=== PATIENT | male | born 2000 | race Caucasian/White ===

== ENCOUNTER 2020-11-10 11:29 | Emergency (ER) | payer MEDICAID ==
[2020-11-10] MEDS ORDERED: ZOFRAN ODT 4 MG PO ONE (11:58)
[2020-11-10] MEDS ORDERED: ZOFRAN ODT 4 MG ONE (11:59)
--- NOTE | 2020-11-10 12:03 | ERPHSYRPT ---
- History of Present Illness Time Seen by Provider: 11/10/20 11:30 Source: patient Exam Limitations: no limitations Patient Subjective Stated Complaint: Patient has compaints of back pain 02/22, midline lower back and into bilateral flanks. Patient states he had back surgery in May. Triage Nursing Assessment: Patient presents to ED with c/o back pain 02/22. Reports back surgery for buldging disc to cut down that was on sciatic nerve which resulted in scar tissue and back will "lock up" in pain starting yesterday. Physician History: This is a 20-year-old white male who has a history of a back surgery to correct herniated disks in May 2020. 2 days ago, the patient states he was lifting up his child when he felt a pop in his back. He stated he did not have any pain until 24 hours later which was yesterday. He comes in today stating that he is in excruciating pain in this area where he had the surgery. He has no loss of bowel or bladder control. He states he has no numbness in his lower extremitie s. He states he has full sensation in his bilateral lower extremities down to his toes Timing/Duration: yesterday, sudden Method of Injury: bending, lifting Quality: sharp, stabbing Back Pain Location: lumbar spine Severity of Pain-Max: moderate Severity of Pain-Current: moderate Modifying Factors: Improves With: movement Associated Symptoms: lower back pain, No loss of bowel control, No problems urinating, No light-headedness, No dizziness, No numbness in legs/feet, No sensory/motor loss, No tingling in legs/feet Previous symptoms: no prior history Allergies/Adverse Reactions: No Known Drug Allergies Allergy (Unverified 11/10/20 11:41) Home Medications: Diazepam [Valium] 10 mg PO PRN 11/10/20 [History] Hx Tetanus, Diphtheria Vaccination/Date Given: Yes Hx Influenza Vaccination/Date Given: No Hx Pneumococcal Vaccination/Date Given: No Immunizations Up to Date: Yes Travel Risk - International Travel Have you traveled outside of the country in past 3 weeks: No - Coronavirus Screening Are you exhibiting any of the following symptoms?: No Close contact with a COVID-19 positive Pt in past 14-21 Days: No - Vaccine Status Have you recieved a Covid-19 vaccination: No - Review of Systems Constitutional: No Symptoms Eyes: No Symptoms Ears, Nose, & Throat: No Symptoms Respiratory: No Symptoms Cardiac: No Symptoms Abdominal/Gastrointestinal: No Symptoms Genitourinary Symptoms: No Symptoms Musculoskeletal: Back Pain Skin: No Symptoms Neurological: No Symptoms Psychological: No Symptoms Endocrine: No Symptoms Hematologic/Lymphatic: No Symptoms Immunological/Allergic: No Symptoms All Other Systems: Reviewed and Negative - Past Medical History Pertinent Past Medical History: No Musculoskeletal History: Other Other Medical History: buldging disc - Past Surgical History Past Surgical History: Yes Other Surgical History: back surgery may 2020 - Social History Smoking Status: Former smoker Exposure to second hand smoke: Yes Drug Use: marijuana Patient Lives Alone: No - Nursing Vital Signs Nursing Vital Signs: Initial Vital Signs Temperature 97.9 F 11/10/20 11:30 Pulse Rate 71 11/10/20 11:30 Respiratory Rate 20 11/10/20 11:30 Blood Pressure 157/88 11/10/20 11:30 O2 Sat by Pulse Oximetry 99 11/10/20 11:30 Pain Scale Pain Intensity 8 - Physical Exam General Appearance: no apparent distress, alert, anxiety Eye Exam: PERRL/EOMI, eyes nml inspection Ears, Nose, Throat Exam: normal ENT inspection, moist mucous membranes Neck Exam: normal inspection, non-tender, supple, full range of motion Respiratory Exam: airway intact, No chest tenderness, No respiratory distress Gastrointestinal Exam: No tenderness Rectal Exam: not done Back Exam: normal inspection, normal range of motion, vertebral tenderness, decreased range of motion, muscle spasm, No CVA tenderness Extremity Exam: normal inspection, normal range of motion, pelvis stable Neurologic Exam: alert, oriented x 3, cooperative, weaver tire cord II-XII nml as tested, normal mood/affect, nml cerebellar function, nml station & gait, sensation nml Skin Exam: normal color, warm, dry Lymphatic Exam: No adenopathy SpO2 Interpretation: normal SpO2: 99 O2 Delivery: Room Air - Course Nursing assessment & vital signs reviewed: Yes Ordered Tests: Active Orders 24 hr Category Date Time Status LUMBAR LIMITED (2 OR 3 VIEWS) Stat Exams 11/10/20 12:06 Completed Medication Summary Discontinued Medications Generic Name Dose Route Start Last Admin Trade Name Freq PRN Reason Stop Dose Admin Hydromorphone HCl 1 mg 11/10/20 12:36 Hydromorphone 1 Mg/Ml Injection IM 11/10/20 12:37 STAT ONE Ondansetron HCl 4 mg 11/10/20 11:58 11/10/20 12:01 Zofran Odt 4 Mg PO 11/10/20 11:59 4 mg STAT ONE Administration Ondansetron HCl Confirm 11/10/20 11:59 Zofran Odt 4 Mg Administered 11/10/20 12:00 Dose 4 mg .ROUTE .STK-MED ONE - Progress Progress: improved, pain not gone completely Progress Note: 11/10/20 12:46 X-ray of the lumbar spine demonstrates 4 lumbar segments with sacralized L5 and normal alignment with minimal L4-L5 disc space narrowing and minimal T12-L1 anterior wedge favoring transitional segments. No acute fractures are demonstrated. Counseled pt/family regarding: diagnosis, need for follow-up, rad results - Departure Departure Disposition: Home Clinical Impression: Back pain Condition: Stable Critical Care Time: No Additional Instructions: Call your back surgeon and your primary care physician today to make arrangements for further evaluation and management. Take your medications as prescribed. Prescriptions: Cyclobenzaprine HCl 10 mg [Cyclobenzaprine 10 MG] 10 mg PO TID #10 tablet Prednisone 10 mg [Deltasone 10 mg] 10 mg PO TID #12 tablet
--- NOTE | 2020-11-10 12:20 | XRAY ---
Indication: Low back pain. Comparison: None 3 view lumbar spine demonstrates 4 lumbar segments with sacralized L5 in normal alignment with minimal L4-L5 disc space narrowing and minimal T12-L1 anterior wedging favoring transitional segments. No other bony, articular, or soft tissue abnormalities.
[2020-11-10] MEDS ORDERED: Hydromorphone 1 mg/ml Injection IM ONE (12:36)
[2020-11-10] MEDS ORDERED: solu-MEDROL 125 MG IM ONE (12:49)
[2020-11-10 13:28] VITALS: BP 102/44; PULSE 68; O2SAT 98
== END 2020-11-10 13:31 | disposition home or self-care (01) ==
LOC: ED 11:29
DX: M54.5 Low back pain (principal)
CPT/HCPCS: 72100; 99284; Q0162

== ENCOUNTER 2021-06-07 10:42 | Emergency (ER) | payer MEDICAID ==
[2021-06-07] MEDS ORDERED: Sodium Chloride 0.9% 1000 ML 1,000 ML IV STA (10:58)
[2021-06-07 11:07] VITALS: O2SAT 97
[2021-06-07] MEDS ORDERED: Sodium Chloride 0.9% 1000 ML 1,000 ML ONE (11:12)
[2021-06-07] MEDS ORDERED: NORCO 5/325 MG ONE (11:12)
--- NOTE | 2021-06-07 11:12 | ERPHSYRPT ---
- History of Present Illness Time Seen by Provider: 06/07/21 11:05 Source: patient Exam Limitations: no limitations Patient Subjective Stated Complaint: cough, fever, headache, body aches, nausea, since yesterday Triage Nursing Assessment: Pt brought self to the ER, tachycardic, hypertensive, rates pain 10/10 in the head and overall body pain, bounding pulses, skin n/h/d, no difficulty breathing, states that his temp was 104.8 at home during the night, productive thick yellow/greenish cough Physician History: Patient is a 21-year-old white male who presents with COVID symptoms x2 days. He was exposed to several people who subsequently developed COVID his symptoms started yesterday he has had a severe headache nasal congestion coughing producing some mucus fever chills sweats some nausea no vomiting or diarrhea and severe body aches and muscle aches. Timing/Duration: yesterday Cough Quality/Degree: moderate, productive cough Possible Cause: illness exposure Modifying Factors: Improves With: coughing Associated Symptoms: fever, chills, chest pain/soreness, cough, facial pain, headache, lightheadedness, muscle aches, nasal congestion, nasal drainage, shortness of breath, sinus infection, sore throat, wheezing Allergies/Adverse Reactions: No Known Drug Allergies Allergy (Verified 06/07/21 11:07) Hx Tetanus, Diphtheria Vaccination/Date Given: Yes Hx Influenza Vaccination/Date Given: No Hx Pneumococcal Vaccination/Date Given: No Travel Risk - International Travel Have you traveled outside of the country in past 3 weeks: No - Coronavirus Screening Are you exhibiting any of the following symptoms?: Yes Symptoms: Fever, Cough: New Onset, Vomiting/Diarrhea, Headaches/Body Aches/Fatigue - Vaccine Status Have you recieved a Covid-19 vaccination: No - Review of Systems Constitutional: Fever, Chills, Fatigue, Lethargy, Malaise, Night Sweats, Weakness Eyes: No Symptoms Ears, Nose, & Throat: No Symptoms, Nose Pain, Nose Congestion, Nose Discharge, Sinus Drainage, Throat Pain, Hoarse, Painful Swallowing Respiratory: Cough, Dyspnea, Dyspnea on Exertion (SANCHEZ) Cardiac: No Chest Pain, No Edema, No Syncope Abdominal/Gastrointestinal: Abdominal Pain, Nausea, No Vomiting, No Diarrhea Genitourinary Symptoms: No Dysuria Musculoskeletal: Arthralgias, Back Pain, Myalgias, No Neck Pain Skin: No Rash Neurological: Headache, Lethargy, No Dizziness, No Focal Weakness, No Sensory Changes Psychological: No Symptoms Endocrine: No Symptoms All Other Systems: Reviewed and Negative - Past Medical History Pertinent Past Medical History: No Musculoskeletal History: Other Other Medical History: buldging disc - Past Surgical History Past Surgical History: Yes Other Surgical History: back surgery may 2020 - Social History Smoking Status: Former smoker Exposure to second hand smoke: No Drug Use: marijuana Patient Lives Alone: No - Nursing Vital Signs Nursing Vital Signs: Initial Vital Signs Temperature 99.6 F 06/07/21 10:55 Pulse Rate 113 H 06/07/21 10:55 Respiratory Rate 17 06/07/21 10:55 Blood Pressure 149/92 06/07/21 10:55 O2 Sat by Pulse Oximetry 97 06/07/21 10:55 Pain Scale Pain Intensity 10 - Physical Exam General Appearance: moderate distress Eye Exam: PERRL/EOMI, eyes nml inspection Ears, Nose, Throat Exam: moist mucous membranes, pharyngeal erythema Neck Exam: normal inspection, non-tender, supple, full range of motion Respiratory Exam: normal breath sounds, lungs clear, No respiratory distress Cardiovascular Exam: regular rate/rhythm, normal heart sounds Gastrointestinal/Abdomen Exam: tenderness, No normal bowel sounds (Increased bowel sounds), No guarding, No rebound Back Exam: normal inspection, decreased range of motion, muscle spasm Extremity Exam: normal inspection, normal range of motion Neurologic Exam: oriented x 3, cooperative, family independence case manager II-XII nml as tested, normal moo d/affect Skin Exam: normal color, warm, dry SpO2 Interpretation: normal SpO2: 97 O2 Delivery: Room Air - Course Nursing assessment & vital signs reviewed: Yes EKG Interpreted by Me: RATE ([id number]), NORMAL AXIS, NORMAL INTERVALS, Non-specific ST Changes - Radiology Exams Chest X-ray Interpretation: Interpreted by me, Negative Ordered Tests: Active Orders 24 hr Category Date Time Status EKG-ER Only STAT Care 06/07/21 10:58 Active IV Insertion STAT Care 06/07/21 10:58 Active CHEST 1 VIEW (PORTABLE) Stat Exams 06/07/21 11:08 Taken BLOOD CULTURE Stat Lab 06/07/21 11:21 Received CBC W DIFF Stat Lab 06/07/21 11:15 Completed CMP Stat Lab 06/07/21 11:15 Completed COVID AG-BINAX NOW RAPID TEST Stat Lab 06/07/21 11:18 Completed D-DIMER QUANTITATIVE Stat Lab 06/07/21 11:15 Completed INFLUENZA A+B LEONEL Stat Lab 06/07/21 11:18 Completed Lactic Acid Stat Lab 06/07/21 11:15 Completed MAGNESIUM Stat Lab 06/07/21 11:15 Completed PROTIME WITH INR Stat Lab 06/07/21 11:15 Completed TROPONIN Q3H Lab 06/07/21 11:15 Completed TROPONIN Q3H Lab 06/07/21 14:00 Ordered TROPONIN Q3H Lab 06/07/21 17:00 Ordered TROPONIN Q3H Lab 06/07/21 20:00 Ordered TROPONIN Q3H Lab 06/07/21 23:00 Ordered UA W/RFX UR CULTURE Stat Lab 06/07/21 10:58 Ordered Medication Summary Discontinued Medications Generic Name Dose Route Start Last Admin Trade Name Freq PRN Reason Stop Dose Admin Acetaminophen Confirm 06/07/21 11:17 Acetaminophen 500 Mg Tablet Administered 06/07/21 11:18 Dose 1,000 mg .ROUTE .STK-MED ONE Acetaminophen 1,000 mg 06/07/21 11:20 06/07/21 11:22 Acetaminophen 500 Mg Tablet PO 06/07/21 11:21 1,000 mg STAT ONE Administration Hydrocodone Bitart/Acetaminophen 1 tab 06/07/21 11:06 06/07/21 11:20 Hydrocodone/Apap 5/325 Mg Tablet PO 06/07/21 11:07 Not Given STAT ONE Hydrocodone Bitart/Acetaminophen Confirm 06/07/21 11:12 Hydrocodone/Apap 5/325 Mg Tablet Administered 06/07/21 11:13 Dose 1 tab .ROUTE .STK-MED ONE Sodium Chloride 1,000 mls @ 999 mls/hr 06/07/21 10:58 06/07/21 12:19 Sodium Chloride 0.9% 1000 Ml IV 06/07/21 11:58 Infused .Q1H1M STA Infusion Sodium Chloride Confirm 06/07/21 11:12 Sodium Chloride 0.9% 1000 Ml Administered 06/07/21 11:13 Dose 1,000 mls @ ud .ROUTE .STK-MED ONE Lab/Rad Data: Laboratory Result Diagrams 06/07/21 11:15 06/07/21 11:15 Laboratory Results 06/07/21 06/07/21 06/07/21 Range/Units 11:18 11:18 11:15 WBC (4.0-10.5) K/mm3 RBC (4.1-5.6) M/mm3 Hgb (12.5-18.0) gm/dl Hct (42-50) % MCV (78-100) fl MCH (26-32) pg MCHC (32-36) g/dl RDW (11.5-14.0) % Plt Count (150-450) K/mm3 MPV (7.5-11.0) fl Gran % (36.0-66.0) % Eos # (Auto) (0-0.5) Absolute Lymphs (auto) (1.0-4.6) Absolute Monos (auto) (0.0-1.3) Lymphocytes % (24.0-44.0) % Monocytes % (0.0-12.0) % Eosinophils % (0.00-5.0) % Basophils % (0.0-0.4) % Absolute Granulocytes (1.4-6.9) Basophils # (0-0.4) PT (9.4-12.5) SECONDS INR (0.8-3.0) D-Dimer (215-500) ng/mL Sodium (137-145) mmol/L Potassium (3.5-5.1) mmol/L Chloride (98-107) mmol/L Carbon Dioxide (22-30) mmol/L Anion Gap (5-15) MEQ/L BUN (9-20) mg/dL Creatinine (0.66-1.25) mg/dL Estimated GFR ML/MIN Glucose (74-106) mg/dL Lactic Acid (0.4-2.0) Calcium (8.4-10.2) mg/dL Magnesium (1.6-2.3) mg/dL Total Bilirubin (0.2-1.3) mg/dL AST (17-59) U/L ALT (0-50) U/L Alkaline Phosphatase (38-126) U/L Troponin I < 0.012 (0.000-0.034) ng/mL Serum Total Protein (6.3-8.2) g/dL Albumin (3.5-5.0) g/dL Influenza Type A Ag POSITIVE (NEGATIVE) Influenza Type B Ag NEGATIVE (NEGATIVE) SARS-CoV-2 Ag (Rapid) NEGATIVE (NEGATIVE) 06/07/21 06/07/21 06/07/21 Range/Units 11:15 11:15 11:15 WBC (4.0-10.5) K/mm3 RBC (4.1-5.6) M/mm3 Hgb (12.5-18.0) gm/dl Hct (42-50) % MCV (78-100) fl MCH (26-32) pg MCHC (32-36) g/dl RDW (11.5-14.0) % Plt Count (150-450) K/mm3 MPV (7.5-11.0) fl Gran % (36.0-66.0) % Eos # (Auto) (0-0.5) Absolute Lymphs (auto) (1.0-4.6) Absolute Monos (auto) (0.0-1.3) Lymphocytes % (24.0-44.0) % Monocytes % (0.0-12.0) % Eosinophils % (0.00-5.0) % Basophils % (0.0-0.4) % Absolute Granulocytes (1.4-6.9) Basophils # (0-0.4) PT 14.5 H (9.4-12.5) SECONDS INR 1.23 (0.8-3.0) D-Dimer 302 (215-500) ng/mL Sodium 139 (137-145) mmol/L Potassium 3.6 (3.5-5.1) mmol/L Chloride 103 (98-107) mmol/L Carbon Dioxide 21 L (22-30) mmol/L Anion Gap 18.1 H (5-15) MEQ/L BUN 9 (9-20) mg/dL Creatinine 0.94 (0.66-1.25) mg/dL Estimated GFR > 60.0 ML/MIN Glucose 113 H (74-106) mg/dL Lactic Acid 2.1 H (0.4-2.0) Calcium 9.7 (8.4-10.2) mg/dL Magnesium 1.7 (1.6-2.3) mg/dL Total Bilirubin 1.60 H (0.2-1.3) mg/dL AST 25 (17-59) U/L ALT 29 (0-50) U/L Alkaline Phosphatase 53 (38-126) U/L Troponin I (0.000-0.034) ng/mL Serum Total Protein 7.9 (6.3-8.2) g/dL Albumin 5.0 (3.5-5.0) g/dL Influenza Type A Ag (NEGATIVE) Influenza Type B Ag (NEGATIVE) SARS-CoV-2 Ag (Rapid) (NEGATIVE) 06/07/21 Range/Units 11:15 WBC 6.5 (4.0-10.5) K/mm3 RBC 5.19 (4.1-5.6) M/mm3 Hgb 14.9 (12.5-18.0) gm/dl Hct 43.2 (42-50) % MCV 83.2 (78-100) fl MCH 28.7 (26-32) pg MCHC 34.5 (32-36) g/dl RDW 12.4 (11.5-14.0) % Plt Count 169 (150-450) K/mm3 MPV 10.7 (7.5-11.0) fl Gran % 74.1 H (36.0-66.0) % Eos # (Auto) 0.03 (0-0.5) Absolute Lymphs (auto) 0.46 L (1.0-4.6) Absolute Monos (auto) 1.17 (0.0-1.3) Lymphocytes % 7.1 L (24.0-44.0) % Monocytes % 18.1 H (0.0-12.0) % Eosinophils % 0.5 (0.00-5.0) % Basophils % 0.2 (0.0-0.4) % Absolute Granulocytes 4.80 (1.4-6.9) Basophils # 0.01 (0-0.4) PT (9.4-12.5) SECONDS INR (0.8-3.0) D-Dimer (215-500) ng/mL Sodium (137-145) mmol/L Potassium (3.5-5.1) mmol/L Chloride (98-107) mmol/L Carbon Dioxide (22-30) mmol/L Anion Gap (5-15) MEQ/L BUN (9-20) mg/dL Creatinine (0.66-1.25) mg/dL Estimated GFR ML/MIN Glucose (74-106) mg/dL Lactic Acid (0.4-2.0) Calcium (8.4-10.2) mg/dL Magnesium (1.6-2.3) mg/dL Total Bilirubin (0.2-1.3) mg/dL AST (17-59) U/L ALT (0-50) U/L Alkaline Phosphatase (38-126) U/L Troponin I (0.000-0.034) ng/mL Serum Total Protein (6.3-8.2) g/dL Albumin (3.5-5.0) g/dL Influenza Type A Ag (NEGATIVE) Influenza Type B Ag (NEGATIVE) SARS-CoV-2 Ag (Rapid) (NEGATIVE) - Progress Progress: unchanged Air Movement: good Blood Culture(s) Obtained: Yes Antibiotics given: No - Departure Departure Disposition: Home Clinical Impression: Influenza Condition: Stable Critical Care Time: No Referrals: DOCTOR,NO FAMILY [Primary Care Provider] - Follow up/PCP as directed Instructions: Flu, Adult (DC) Prescriptions: Oseltamivir 75 mg [Tamiflu 75MG Capsule] 75 mg PO BID #10 cap
[2021-06-07] MEDS: NORCO 5/325 MG PO ONE ×2 (11:15→11:20)
[2021-06-07] MEDS ORDERED: TYLENOL EXTRA STRENGTH 500 MG ONE (11:17)
[2021-06-07] MEDS ORDERED: TYLENOL EXTRA STRENGTH 500 MG PO ONE (11:20)
[2021-06-07 11:34] LABS: Basophil (Absolute #) 0.01 (0-0.4); Eosinophil % 0.5 % (0.00-5.0); Eosinophil (Absolute #) 0.03 (0-0.5); Hematocrit 43.2 % (42-50); Hemoglobin 14.9 gm/dl (12.5-18.0); Lymphocyte (Absolute #) 0.46 (1.0-4.6); Lymphocytes % 7.1 % (24.0-44.0); Mean Cell Volume 83.2 fl (78-100); Mean Corpuscular Hemoglobin 28.7 pg (26-32); Mean Corpuscular Hgb Concent. 34.5 g/dl (32-36); Mean Platelet Volume 10.7 fl (7.5-11.0); Monocyte (Absolute #) 1.17 (0.0-1.3); Monocytes % 18.1 % (0.0-12.0); Neutrophil % 74.1 % (36.0-66.0); Platelet Count 169 K/mm3 (150-450); Red Blood Count 5.19 M/mm3 (4.1-5.6); Red Cell Distribution Width 12.4 % (11.5-14.0); White Blood Count 6.5 K/mm3 (4.0-10.5)
[2021-06-07 11:44] LABS: INR 1.23 (0.8-3.0); PROTIME 14.5 SECONDS (9.4-12.5)
[2021-06-07 11:46] LABS: ALKALINE PHOSPHATASE 53 U/L (38-126); ANION GAP 18.1 MEQ/L (5-15); BLOOD UREA NITROGEN 9 mg/dL (9-20); CHLORIDE 103 mmol/L (98-107); Calcium 9.7 mg/dL (8.4-10.2); Carbon Dioxide 21 mmol/L (22-30); Creatinine 1 0.94 mg/dL (0.66-1.25); EST GLOMERULAR FILTRATION RATE > 60.0 ML/MIN; Glucose 113 mg/dL (74-106); MAGNESIUM 1.7 mg/dL (1.6-2.3); Potassium 3.6 mmol/L (3.5-5.1); SGOT/AST 25 U/L (17-59); SGPT/ALT 29 U/L (0-50); SODIUM 139 mmol/L (137-145); Total Protein 7.9 g/dL (6.3-8.2)
[2021-06-07 12:02] VITALS: BP 146/78; PULSE 104
[2021-06-07 12:18] LABS: INFLUENZA A POSITIVE (NEGATIVE); INFLUENZA B NEGATIVE (NEGATIVE)
[2021-06-07 12:19] LABS: COVID AG -BINAX NOW RAPID TEST NEGATIVE (NEGATIVE)
[2021-06-07 15:27] LABS: Slide Review 1 YES
--- NOTE | 2021-06-07 19:07 | XRAY ---
Indication: Fever, cough, and chills. Suspect Covid 19. Comparison: None Portable chest demonstrates normal heart, lungs, and bony thorax.
== END 2021-06-07 12:36 | disposition home or self-care (01) ==
LOC: ED 10:42
DX: J10.1 Influenza due to other identified influenza virus with other respiratory manifestations (principal); R51.9 Headache, unspecified; R09.81 Nasal congestion; R05.9 Cough, unspecified; R50.9 Fever, unspecified; R11.0 Nausea; M79.10 Myalgia, unspecified site
CPT/HCPCS: 36415; 71045; 80053; 83605; 83735; 84484; 85025; 85379; 85610; 87040; 87400; 93005; 96360; 99000; 99284; A9270-GY

== ENCOUNTER 2021-12-04 00:34 | Emergency (ER) | payer MEDICAID ==
[2021-12-04] MEDS ORDERED: Floxin Otic 5 ML OT ONE (00:49)
[2021-12-04] MEDS ORDERED: Augmentin 875-125 Tablet PO ONE (00:50)
[2021-12-04 00:56] VITALS: BP 147/86; PULSE 98; O2SAT 96
--- NOTE | 2021-12-04 00:56 | ERPHSYRPT ---
- History of Present Illness Time Seen by Provider: 12/04/21 00:36 Source: patient Exam Limitations: no limitations Physician History: 21 years old male presented in the ER with chief complaint of flulike symptoms with bilateral earache. Patient report almost a month ago he was seen at primary care and was told that he has infection in both ears. He is having off-and-on earache which is getting worse especially on the left side with a fever T-max of 102, responding to Tylenol/ibuprofen. No cough. Has headache with body aches fatigue tiredness and lack of energy. Denies any known sick contacts. Timing/Duration: gradual onset, days, weeks Severity: moderate ENT Location: ear (R), ear (L) Prearrival Treatment: over the counter meds Modifying Factors: Worsens With: coughing Associated Symptoms: ear pain (R), ear pain (L), fever, chills, change in hearing, headache, nasal congestion/drainage, sore throat, No ear drainage Allergies/Adverse Reactions: No Known Drug Allergies Allergy (Verified 12/04/21 00:56) Home Medications: No Reportable Medications [No Reported Medications] 12/04/21 [History] Hx Tetanus, Diphtheria Vaccination/Date Given: Yes Hx Influenza Vaccination/Date Given: No Hx Pneumococcal Vaccination/Date Given: No Travel Risk - Vaccine Status Have you recieved a Covid-19 vaccination: No - Review of Systems Constitutional: Fever, Fatigue, Weakness Eyes: No Symptoms Ears, Nose, & Throat: Nose Congestion, Throat Pain Respiratory: No Symptoms Cardiac: No Symptoms Abdominal/Gastrointestinal: Nausea Genitourinary Symptoms: No Symptoms Musculoskeletal: Back Pain, Myalgias Skin: No Symptoms Neurological: Headache Psychological: No Symptoms Hematologic/Lymphatic: No Symptoms Immunological/Allergic: No Symptoms - Past Medical History Pertinent Past Medical History: No Musculoskeletal History: Other Other Medical History: buldging disc - Past Surgical History Past Surgical History: Yes Other Surgical History: back surgery may 2020 - Social History Smoking Status: Former smoker Exposure to second hand smoke: No Drug Use: marijuana Patient Lives Alone: No - Nursing Vital Signs Nursing Vital Signs: Initial Vital Signs Temperature 97.9 F 12/04/21 00:44 Pulse Rate 98 H 12/04/21 00:44 Respiratory Rate 16 12/04/21 00:44 Blood Pressure 147/86 12/04/21 00:44 O2 Sat by Pulse Oximetry 99 12/04/21 00:44 Pain Scale Pain Intensity 10 - Physical Exam General Appearance: no apparent distress, alert Eye Exam: bilateral eye: normal inspection, PERRL, EOMI Ear Exam: right ear: canal normal, TM normal, left ear: swelling (Canal with erythema. TM not visible. No mastoid tenderness bilaterally.), tenderness, bilateral ear: auricle normal Nasal Exam: normal inspection Throat Exam: moist mucus membranes, tonsillar swelling Neck Exam: normal inspection, non-tender, supple, full range of motion Cardiovascular/Respiratory Exam: normal breath sounds, regular rate/rhythm Abdominal Exam: non-tender, soft Neurologic Exam: alert, oriented x 3, cooperative, computer designer II-XII nml as tested Skin Exam: normal color SpO2 Interpretation: normal SpO2: 96 O2 Delivery: Room Air Ordered Tests: Medication Summary Discontinued Medications Generic Name Dose Route Start Last Admin Trade Name Freq PRN Reason Stop Dose Admin Amoxicillin/Clavulanate Potassium 875 mg 12/04/21 00:50 12/04/21 01:47 Amox Tr/Potassium Clavulanate 875 Mg Tablet PO 12/04/21 00:51 875 mg STAT ONE Administration Amoxicillin/Clavulanate Potassium Confirm 12/04/21 00:58 Amox Tr/Potassium Clavulanate 875 Mg Tablet Administered 12/04/21 00:59 Dose 875 mg .ROUTE .STK-MED ONE Ofloxacin 5 ml 12/04/21 00:49 12/04/21 01:12 Ofloxacin 5 Ml Ear Drops OT 12/04/21 00:50 5 ml STAT ONE Administration Ondansetron HCl 4 mg 12/04/21 01:07 12/04/21 01:09 Zofran 4 Mg/Udtablet Orally Disintegrating PO 12/04/21 01:08 4 mg STAT ONE Administration Ondansetron HCl Confirm 12/04/21 01:08 Zofran 4 Mg/Udtablet Orally Disintegrating Administered 12/04/21 01:09 Dose 4 mg .ROUTE .STK-MED ONE Lab/Rad Data: Laboratory Results 12/04/21 Range/Units 01:23 Influenza Type A Ag NEGATIVE (NEGATIVE) Influenza Type B Ag NEGATIVE (NEGATIVE) RSV (PCR) NEGATIVE (Negative) SARS-CoV-2 (PCR) POSITIVE A (NEGATIVE) - Progress Progress: unchanged Progress Note: 12/04/21 00:54 Patient is afebrile. Does not want any pain medication. Does have otitis externa on the left and medial on the right. Started on topical and oral antibiotics. COVID-19 testing is done which is pending. Patient does not want to wait for the test, recommended supportive care. He is not in any distress. Commended outpatient follow-up. Discussed signs symptoms of worsening needing return to ER which he seems understanding. Counseled pt/family regarding: lab results, diagnosis, need for follow-up - Departure Departure Disposition: Home Clinical Impression: Otitis externa, Otitis media, Viral syndrome Condition: Stable Critical Care Time: No Referrals: JASON XIE [Primary Care Provider] - Follow up/PCP as directed (1-2 days for reevaluation) Instructions: Outer Ear Infection (DC) Additional Instructions: Take Tylenol/ibuprofen as needed for pain/fever, rotate every 4 hourly. Drink plenty fluids to keep yourself well-hydrated. Follow-up with primary care for reevaluation. Return to ER for any worsening. Use 10 drops left ear daily for 7 days. Prescriptions: Amox Tr/Potass Clav. 875 mg [Augmentin 875-125 Tablet] 875 mg PO BID #14 tablet
[2021-12-04] MEDS ORDERED: Augmentin 875-125 Tablet ONE (00:58)
[2021-12-04] MEDS ORDERED: ZOFRAN ODT 4 MG PO ONE (01:07)
[2021-12-04] MEDS ORDERED: ZOFRAN ODT 4 MG ONE (01:08)
[2021-12-04 01:57] LABS: INFLUENZA A NEGATIVE (NEGATIVE); INFLUENZA B NEGATIVE (NEGATIVE); RESPIRATORY SYNCTIAL VIRUS NEGATIVE (Negative)
[2021-12-04 02:32] LABS: SARS-CoV-2 Xpert Express POSITIVE (NEGATIVE)
== END 2021-12-04 01:50 | disposition home or self-care (01) ==
LOC: ED 00:34
DX: H60.92 Unspecified otitis externa, left ear (principal); H66.91 Otitis media, unspecified, right ear; B34.9 Viral infection, unspecified; H92.03 Otalgia, bilateral; R50.9 Fever, unspecified; R51.9 Headache, unspecified; M79.10 Myalgia, unspecified site; R53.83 Other fatigue; Z28.310 Unvaccinated for COVID-19
CPT/HCPCS: 0241U; 99283; Q0162; A9270-GY